=== PATIENT | female | born 1995 | race Caucasian/White ===

== ENCOUNTER 2017-02-02 18:50 | Emergency (ER) | payer SELFPAY ==
[2017-02-02 19:16] VITALS: PULSE 65; RESP 14; TEMP 98.2; O2SAT 92
[2017-02-02] MEDS ORDERED: LET GEL TOPICAL 1 EA SYR TP ONE ×2 (19:33→19:39)
--- NOTE | 2017-02-02 21:13 | EDPHY ---
H & P Time Seen by Provider: 02/02/17 19:21 HPI/ROS: CHIEF COMPLAINT: knee laceration HISTORY OF PRESENT ILLNESS: 21-year-old female presents to the emergency department after a trip and fall while trail running today. Patient has an abrasion to her right elbow, right hand and a laceration to her knee. She denies head strike, no neck pain, remembers the entire accident. Patient reports her tetanus is up-to-date. She denies wrist pain. No numbness or tingling in her extremities. She denies other complaints. Smoking Status: Never smoked Physical Exam: GEN: Awake, alert, oriented, no acute distress RESP: nl resp effort MSK: Normal appearing, full active range of motion of all extremities, 2+ pulses, sensation intact to light touch, no snuffbox tenderness to right wrist, full range of motion of right elbow, right wrist and right knee. SKIN: 2 cm laceration to right the, superficial abrasions to palm of right hand and to right elbow. Constitutional: Initial Vital Signs Temperature (C) 36.8 C 02/02/17 19:12 Heart Rate 65 02/02/17 19:12 Respiratory Rate 14 02/02/17 19:12 Blood Pressure 116/77 02/02/17 19:12 O2 Sat (%) 92 02/02/17 19:12 O2 Delivery Mode Room Air Allergies/Adverse Reactions: No Known Allergies Allergy (Unverified 02/02/17 19:12) Home Medications: Medication Instructions Recorded NK [No Known Home Meds] 02/02/17 MDM/Departure - MDM Procedures: Procedure: Laceration repair. Verbal consent was obtained from the patient. The 2 cm laceration on the right knee was anesthetized using 1% lidocaine with epinephrine. The wound was carefully irrigated by the emergency department clean room technician. Next, the wound was prepped and draped in sterile fashion and explored to its base with a gloved finger. There were no deep structures involved. No tendon injury was identified. No vascular injury was identified. No foreign bodies were identified. The wound was repaired with 5.0 Prolene, 5 simple interrupted sutures. The wound repair was simple. The procedure was performed by myself. Tetanus and antibiotic status were addressed. Medications Given: Discontinued Medications Tetracaine/Epinephrine/Lidocaine (Let Gel Topical) 1 ea TP EDNOW ONE Stop: 02/02/17 19:40 Last Admin: 02/02/17 19:40 Dose: 1 ea - Depart Disposition: Home, Routine, Self-Care Clinical Impression: Multiple abrasions Laceration of right knee Qualifiers: Encounter type: initial encounter Qualified Code(s): S81.011A - Laceration without foreign body, right knee, initial encounter Condition: Good Instructions: Laceration (ED), Acute Wounds (ED) Additional Instructions: Return to the emergency department 12-14 days for suture removal, return sooner for any signs of infection. Referrals: NONE *PRIMARY CARE P,. [Primary Care Provider] - As per Instructions
[2017-02-02 21:29] VITALS: BP 120/70
== END 2017-02-02 21:31 | disposition home or self-care (01) ==
PROC: 0HQKXZZ Repair Right Lower Leg Skin, External Approach (ICD-10-PCS; principal; 2017-02-02)
DX: S81.011A Laceration without foreign body, right knee, initial encounter (principal); S60.511A Abrasion of right hand, initial encounter; S50.311A Abrasion of right elbow, initial encounter; W01.0XXA Fall on same level from slipping, tripping and stumbling without subsequent striking against object, initial encounter; Y99.8 Other external cause status; Y93.02 Activity, running

== ENCOUNTER 2017-12-28 00:29 | Emergency (ER) | payer SELFPAY ==
[2017-12-28 03:12] LABS: PLATELET COUNT 226 10^3/uL (150-400)
--- NOTE | 2017-12-28 04:47 | EDPHY ---
H & P Stated Complaint: SI - Personal History Tetanus Vaccine Date: 2010 - Medical/Surgical History Hx Asthma: No Hx Chronic Respiratory Disease: No Hx Diabetes: No Hx Cardiac Disease: No Hx Renal Disease: No Hx Cirrhosis: No Hx Alcoholism: No Hx HIV/AIDS: No Hx Splenectomy or Spleen Trauma: No Other PMH: wisdom teeth - Social History Smoking Status: Never smoked Time Seen by Provider: 12/28/17 00:33 HPI/ROS: Chief Complaint: Suicidal ideation HPI: 22-year-old woman being brought in on a mental health hold by police after her ex-boyfriend reported that she had expressed suicidal ideation. Patient states she has been increasingly depressed for the last 2 weeks after boyfriend broke up with her. She is feeling increasingly isolated. She is having thoughts of suicide but denies any current plan. The police department mental health hold states she had intentions to hang herself but she is not endorsing this at this time. Denies any recent ingestions. She has never been treated for depression but has been having some depression for the last couple of years. No prior suicide attempts in the past. ROS: 10 point Review of Systems is negative except as noted in the HPI. PMH: Denies Social History: No smoking, no alcohol, no recreational drug use Family History: non-contributory Physical Exam: Gen: Awake, Alert, No Distress HEENT: Nose: no rhinorrhea Eyes: PERRLA, EOMI Mouth: Moist mucosa Neck: Supple, no JVD Chest: nontender, lungs clear to auscultation Heart: S1, S2 normal, no murmur Abd: Soft, non-tender, no guarding Back: no CVA tenderness, no midline tenderness Ext: no edema, non-tender Skin: no rash Neuro: CN II-XII intact, Sensation grossly intact, Strength 5/5 in bilateral upper and lower extremities (David Fu) Constitutional: Initial Vital Signs Temperature (C) 36.4 C 12/28/17 00:49 Heart Rate 58 L 12/28/17 00:49 Respiratory Rate 16 12/28/17 00:49 Blood Pressure 134/85 H 12/28/17 00:49 O2 Sat (%) 95 12/28/17 00:49 O2 Delivery Mode Room Air Allergies/Adverse Reactions: No Known Allergies Allergy (Verified 12/28/17 00:51) Home Medications: Medication Instructions Recorded NK [No Known Home Meds] 02/02/17 Medical Decision Making ED Course/Re-evaluation: 22-year-old woman presenting with suicidal ideation with no specific plan. She has been placed on a mental health hold by police. Will obtain medical clearance and plan for mental health evaluation. 0700 patient is signed out to Dr. Luong Pending mental health evaluation. I have had no issues caring for this patient overnight. (David Fu) Patient's care signed over to me at 7:00 a.m.. Patient is stable. She is undergoing mental health evaluation. 8:15 a.m. patient has had her mental health evaluation. She is felt to be appropriate for outpatient treatment. She will be discharged. Patient is comfortable with this plan (Jaya Luong) - Data Points Laboratory Results: Laboratory Results 12/28/17 01:01 12/28/17 01:01 12/28/17 12/28/17 12/28/17 01:01 01:01 01:01 WBC RBC Hgb Hct MCV MCH MCHC RDW Plt Count MPV Neut % (Auto) Lymph % (Auto) Cache % (Auto) Eos % (Auto) Baso % (Auto) Nucleat RBC Rel Count Absolute Neuts (auto) Absolute Lymphs (auto) Absolute Monos (auto) Absolute Eos (auto) Absolute Basos (auto) Absolute Nucleated RBC Immature Gran % Immature Gran # Sodium 145 mEq/L mEq/L (135-145) Potassium 3.9 mEq/L mEq/L (3.3-5.0) Chloride 106 mEq/L mEq/L (97-110) Carbon Dioxide 27 mEq/l mEq/l (22-31) Anion Gap 12 mEq/L mEq/L (8-16) BUN 23 mg/dL mg/dL (7-23) Creatinine 0.7 mg/dL mg/dL (0.6-1.0) Estimated GFR > 60 Glucose 87 mg/dL mg/dL (70-100) Calcium 9.6 mg/dL mg/dL (8.5-10.4) Urine Test NEGATIVE Urine Opiates Screen NEGATIVE (NEGATIVE) Urine Barbiturates NEGATIVE (NEGATIVE) Ur Phencyclidine Scrn NEGATIVE (NEGATIVE) Ur Amphetamine Screen NEGATIVE (NEGATIVE) U Benzodiazepines Scrn NEGATIVE (NEGATIVE) Urine Cocaine Screen NEGATIVE (NEGATIVE) U Marijuana (THC) Screen NEGATIVE (NEGATIVE) Ethyl Alcohol < 10 mg/dL mg/dL (0-10) 12/28/17 01:01 WBC 6.89 10^3/uL 10^3/uL (3.80-9.50) RBC 4.39 10^6/uL 10^6/uL (4.18-5.33) Hgb 14.2 g/dL g/dL (12.6-16.3) Hct 42.1 % % (38.0-47.0) MCV 95.9 fL fL (81.5-99.8) MCH 32.3 pg pg (27.9-34.1) MCHC 33.7 g/dL g/dL (32.4-36.7) RDW 12.2 % % (11.5-15.2) Plt Count 226 10^3/uL 10^3/uL (150-400) MPV 10.0 fL fL (8.7-11.7) Neut % (Auto) 48.8 % % (39.3-74.2) Lymph % (Auto) 38.8 % % (15.0-45.0) Cache % (Auto) 9.7 % % (4.5-13.0) Eos % (Auto) 1.6 % % (0.6-7.6) Baso % (Auto) 1.0 % % (0.3-1.7) Nucleat RBC Rel Count 0.0 % % (0.0-0.2) Absolute Neuts (auto) 3.36 10^3/uL 10^3/uL (1.70-6.50) Absolute Lymphs (auto) 2.67 10^3/uL 10^3/uL (1.00-3.00) Absolute Monos (auto) 0.67 10^3/uL 10^3/uL (0.30-0.80) Absolute Eos (auto) 0.11 10^3/uL 10^3/uL (0.03-0.40) Absolute Basos (auto) 0.07 10^3/uL 10^3/uL (0.02-0.10) Absolute Nucleated RBC 0.00 10^3/uL 10^3/uL (0-0.01) Immature Gran % 0.1 % % (0.0-1.1) Immature Gran # 0.01 10^3/uL 10^3/uL (0.00-0.10) Sodium Potassium Chloride Carbon Dioxide Anion Gap BUN Creatinine Estimated GFR Glucose Calcium Urine Test Urine Opiates Screen Urine Barbiturates Ur Phencyclidine Scrn Ur Amphetamine Screen U Benzodiazepines Scrn Urine Cocaine Screen U Marijuana (THC) Screen Ethyl Alcohol Departure - Departure Disposition: Home, Routine, Self-Care Clinical Impression: Depression Qualifiers: Depression Type: unspecified Qualified Code(s): F32.9 - Major depressive disorder, single episode, unspecified Condition: Good Instructions: Depression (ED) Additional Instructions: Follow-up as recommended per mental health Return for further thoughts of harming yourself or others. Referrals: NONE *PRIMARY CARE P,. [Primary Care Provider] - As per Instructions [facility] [Outside] - As per Instructions
[2017-12-28 08:31] VITALS: BP 105/82
== END 2017-12-28 08:30 | disposition home or self-care (01) ==
DX: F32.9 Major depressive disorder, single episode, unspecified (principal)
CPT/HCPCS: 80305; G0480